=== PATIENT | female | born 1930 | race Caucasian/White ===

== ENCOUNTER 2016-07-21 13:36 | Emergency (ER) | payer MEDICARE ==
[2016-07-21] MEDS ORDERED: DEXAMETHASONE 4 MG TABLET ONE (14:48)
[2016-07-21] MEDS ORDERED: DIAZEPAM 5 MG TABLET ONE (14:49)
[2016-07-21] MEDS ORDERED: ONDANSETRON 4 MG/2ML 2 ML VIAL ONE (14:55)
[2016-07-21] MEDS ORDERED: DEXAMETHASONE SOD PHOS 10 MG/1 ML VIAL ONE (15:17)
[2016-07-21] MEDS ORDERED: DIAZEPAM 5 MG/ML SYRINGE 2 ML ONE (15:17)
[2016-07-21] MEDS ORDERED: LACTATED RINGERS 1,000 ML ONE (16:13)
[2016-07-21 16:33] LABS: ABSOLUTE NEUTROPHIL COUNT 3.4 K/mm3 (1.8-7.7); BASO % 0.7 % (0.2-1.0); EOS % 0.2 % (0.9-2.9); HEMOGLOBIN 12.4 gm/l (12.0-16.0); IMM NEUT% 0.2 % (0-1); LYMPH # 0.6 (1.0-4.8); LYMPH % 13.7 % (15-45); MEAN CELL VOLUME 95.7 fl (81.0-99.0); MEAN CORPUSCULAR HEMOGLOBIN 31.2 pg (27.0-31.0); MEAN CORPUSCULAR HGB CONC 32.6 g/dl (33.0-37.0); MEAN PLATELET VOLUME 10.1 fl (7.4-10.4); MONO # 0.1 (0.0-0.8); MONO % 2.9 % (4-12); NEUT % 82.3 % (43-75); PLATELET COUNT 154 K/mm3 (130-400); RED CELL DISTRIBUTION WIDTH 14.2 % (11.5-14.5)
[2016-07-21 16:47] LABS: CALCIUM 9.2 mg/dL (8.6-10.3); MAGNESIUM 1.8 mg/dL (1.9-2.7)
[2016-07-21] MEDS ORDERED: LOSARTAN POTASSIUM 50 MG TABLET PO ONE (17:30)
[2016-07-21 17:55] LABS: SPECIFIC GRAVITY 1.015 (1.001-1.030); URINE BILIRUBIN NEGATIVE (NEGATIVE); URINE BLOOD 1+ (NEGATIVE); URINE GLUCOSE (UA) NEGATIVE (NEGATIVE); URINE LEUKOCYTE ESTERASE TRACE (NEGATIVE); URINE NITRITE NEGATIVE (NEGATIVE); URINE PROTEIN NEGATIVE (NEGATIVE); URINE UROBILINOGEN NORMAL (0-1 mg/dl)
[2016-07-21 18:04] LABS: URINE APPEARANCE CLEAR; URINE COLOR YELLOW
[2016-07-21 18:06] LABS: URINE BACTERIA 0; URINE EPITHELIAL CELLS 0-1 /hpf; URINE RBC 0-2 /hpf
== END 2016-07-21 19:58 | disposition short-term general hospital (02) ==
LOC: ED 13:36
DX: R42 Dizziness and giddiness (principal); R11.10 Vomiting, unspecified; I10 Essential (primary) hypertension